=== PATIENT | male | born 2000 | race Two or more races ===

== ENCOUNTER 2021-09-21 10:40 | Emergency (ER) | payer MEDICAID ==
[~2021-09-21] VITALS: Ht 177.8 cm; Wt 100.0 kg
[2021-09-21] MEDS ORDERED: ONDANSETRON HCL 4MG/2ML INJ IV STA (12:09)
[2021-09-21] MEDS ORDERED: MORPHINE SULFATE 4 MG/ML CPJ (NOT FOR IM USE) IV STA (12:09)
[2021-09-21] MEDS ORDERED: SODIUM CHLORIDE 0.9% 1,000 ML IV ONE (12:15)
[2021-09-21 13:29] LABS: BASOPHILS % 0.9 % (0.0-2.0); EOSINOPHILS % 1.1 % (0.0-5.0); HEMATOCRIT. 43.5 % (42.0-52.0); HEMOGLOBIN. 14.6 g/dL (14.0-18.0); LYMPHOCYTES % 23.3 % (20.0-50.0); MEAN CORPUSCULAR HEMOGLOBIN 28.7 pg (28.0-32.0); MEAN CORPUSCULAR VOLUME 85.5 fL (80.0-94.0); MEAN PLATELET VOLUME 8.7 fl (7.4-10.4); MONOCYTES % 8.9 % (2.0-8.0); NEUTROPHILS % 65.8 % (40.0-76.0); PLATELET 273 x1000/uL (130-400); RED BLOOD CELL COUNT 5.08 mill/uL (4.7-6.1); RED CELL DISTRIBUTION WIDTH 13.2 % (11.6-14.6)
[2021-09-21 13:37] LABS: CHLORIDE 107 mEq/L (98-107)
[2021-09-21 13:40] LABS: PROTHROMBIN TIME 10.3 sec (9.6-11.0)
[2021-09-21] MEDS ORDERED: TRAM50TA MT (16:03)
[2021-09-21] MEDS ORDERED: IBUP-2030 MT (16:03)
[2021-09-21 16:56] VITALS: BP 124/76
== END 2021-09-21 17:08 | disposition home or self-care (01) ==
LOC: ER 10:49
DX: S09.8XXA Other specified injuries of head, initial encounter (principal); S49.81XA Other specified injuries of right shoulder and upper arm, initial encounter; S92.351A Displaced fracture of fifth metatarsal bone, right foot, initial encounter for closed fracture; M54.2 Cervicalgia; S29.8XXA Other specified injuries of thorax, initial encounter; R10.2 Pelvic and perineal pain; V49.49XA Driver injured in collision with other motor vehicles in traffic accident, initial encounter; Y93.89 Activity, other specified; Y92.411 Interstate highway as the place of occurrence of the external cause
CPT/HCPCS: 36415; 70450; 71045; 71260; 72125; 73030; 73590; 73610; 73630; 74177; 80053; 83690; 85025; 85610; 93005; 96361; 96374; 96375; 99291; J2270; J2405; J7030